=== PATIENT | male | born 1975 | race Caucasian/White ===

== ENCOUNTER 2022-11-01 02:13 | Emergency (ER) | payer OTHER, SELFPAY ==
[2022-11-01 02:17] VITALS: BP 191/104; PULSE 111; RESP 24; O2SAT 97
[2022-11-01 02:18] VITALS: TEMP 36.8; BMI 23.0
--- NOTE | 2022-11-01 02:21 | DI.RAD.S_ITS ---
PROCEDURE: XR CHEST 1V INDICATIONS: L sided chest pain hx of pneumothorax TECHNIQUE: One view of the chest was acquired. COMPARISON: None. FINDINGS: Surgical changes and devices: None. Lungs and pleura: Lungs are clear. No pleural effusions or pneumothorax. Mediastinum: Mediastinal contours appear normal. Heart size is normal. Bones and chest wall: No suspicious bony lesions. Overlying soft tissues appear unremarkable. IMPRESSION: No acute cardiopulmonary process. Dictated by: Pako Romero M.D. on 11/01/2022 at 8:26 Approved by: Pako Romero M.D. on 11/01/2022 at 8:26
--- NOTE | 2022-11-01 02:23 | ED.GENADULT ---
HPI - General Adult General Chief complaint: Chest Pain Stated complaint: chest pain Time Seen by Provider: 11/01/22 02:21 Source: patient Mode of arrival: Ambulatory Limitations: no limitations History of Present Illness HPI narrative: Patient is an otherwise healthy 48-year-old male who is here for evaluation of fairly sudden onset of left-sided chest discomfort. He states that it did wake him from sleep. It is somewhat positional and when he takes a deep breath it ?catches? no nausea vomiting. No fevers. No coughing. He did have the spontaneous pneumothorax many years ago that was on the right side. He states this feels different than that. Has not tried anything for his symptoms prior to arrival. Review of Systems Constitutional Constitutional: Reports system reviewed and no additional complaints, except as documented Cardiovascular Cardiovascular: Reports system reviewed and no additional complaints, except as documented Respiratory Respiratory: Reports system reviewed and no additional complaints, except as documented Gastrointestinal Gastrointestinal: Reports system reviewed and no additional complaints, except as documented Integumentary/Breasts Skin/Breast: Reports system reviewed and no additional complaints, except as documented Patient History Social History Smoking Status: Never smoker Exam Initial Vital Signs Initial Vital Signs: Vital Signs Pulse Rate 111 H 11/01/22 02:17 Respiratory Rate 24 11/01/22 02:17 Blood Pressure 191/104 H 11/01/22 02:17 Pulse Oximetry 97 11/01/22 02:17 Const General: cooperative and comfortable Chest Chest: No crepitus and No tenderness Resp Effort & Inspection: normal respiratory effort Auscultation: clear to auscultation bilaterally Cardio Rate: regular rate Rhythm: regular rhythm GI Inspection: normal to inspection and non-distended Palpation: soft and No tender Skin General: no rashes or lesions noted Extrem General: normal to inspection Scores HEART Score Heart Score history: Slightly Suspicious Heart Score EKG: Non-Specific repolarization disturbance Heart Score Age: 45-64 years old Heart Score risk factors: No known risk factors Heart Score troponin: < or = to normal limit Heart Score Total: 2 Course Orders Ordered: ED Orders 11/01/22 02:21 XR chest 1V Stat 11/01/22 02:22 EKG-12 Lead Stat 11/01/22 02:25 Complete Blood Count AUTO DIFF Stat Comprehensive Metabolic Panel Stat D Dimer Stat Lipase Stat Troponin & CK Cardiac Panel Stat Vital Signs Vital signs: Vital Signs - 8 hr 11/01/22 02:18 11/01/22 02:17 11/01/22 02:17 Temperature 98.3 F Pulse Rate 111 H Respiratory Rate 24 Blood Pressure 191/104 H Pulse Oximetry 97 11/01/22 02:26 11/01/22 02:26 Temperature Pulse Rate 105 H Respiratory Rate 18 Blood Pressure 158/97 H Pulse Oximetry 99 Medical Decision Making Lab Data Lab results reviewed: Yes I reviewed the patient's lab results. 11/01/22 02:25 11/01/22 02:25 Labs: Lab Results 11/01/22 11/01/22 11/01/22 Range/Units 02:25 02:25 02:25 WBC 9.8 (4.5-11.0) X10^3/uL RBC 4.80 (4.5-5.9) X10^6/uL Hgb 15.4 (13.5-17.5) g/dL Hct 43.6 (41-53) % MCV 90.8 (80-100) fL MCH 32.1 (26-34) PG MCHC 35.4 (30-36) % RDW 13.5 (11.6-14.8) % Plt Count 282 (150-400) X10^3/uL Neut % (Auto) 54.3 (50-75) % Lymph % (Auto) 28.4 (25-40) % [place] % (Auto) 10.7 (3-14) % Eos % (Auto) 5.3 H (2-4) % Baso % (Auto) 1.3 (0-2) % Neut # (Auto) 5300 (7727-1708) /uL Lymph # (Auto) 2800 (6381-0883) /uL [place] # (Auto) 1100 H (0-900) /uL Eos # (Auto) 500 H (0-450) /uL Baso # (Auto) 100 (0-100) /uL D-Dimer 324 (<500) ng/ml Sodium 138 (137-145) mmol/L Potassium 4.3 (3.4-5.1) mmol/L Chloride 102 (98-107) mmol/L Carbon Dioxide 28 (22-32) mmol/L BUN 14 (9-20) mg/dL Creatinine 1.21 (0.66-1.25) mg/dL Estimated GFR > 60 (>60) mL/min BUN/Creatinine Ratio 11.6 (6-22) Glucose 103 H (70-100) mg/dL Calcium 9.7 (8.4-10.2) mg/dL Total Bilirubin 1.0 (0.2-1.3) mg/dL AST 42 (17-59) IU/L ALT 34 (<50) IU/L Alkaline Phosphatase 97 (38-126) U/L Total Creatine Kinase 99 (55-170) U/L CK-MB (CK-2) TNP CK-MB (CK-2) Rel Index TNP Troponin I < 0.012 (0.01-0.034) ng/mL Total Protein 8.9 H (6.3-8.2) g/dL Albumin 4.8 (3.5-5.0) g/dL Globulin 4.1 (1.7-4.1) g/dL Albumin/Globulin Ratio 1.2 (1.0-2.8) Lipase 88 (23-300) U/L Imaging Data Chest x-ray: My Impression: No pneumothorax, no pneumonia, no focal consolidations, ECG Data Attestation: I personally reviewed and interpreted this ECG as follows: Interpretation: Sinus tachycardia Ventricular rate 109 Normal axis Normal QRS Nonspecific ST T wave changes MDM Narrative Medical decision making narrative: Patient does have a low risk heart score. His chest x-ray shows no signs of pneumothorax which is what he was concerned about given his history. Nonspecific changes on his EKG. D-dimer is negative. Troponin is negative. Given his presentation today I have low suspicion that this is ACS. No indication for antibiotics. No indication for CT scanning. Will discharge patient home return precautions. Discharge Plan Departure Patient Disposition: Home Clinical Impression: Atypical chest pain Instructions: DI for Atypical Chest Pain Activity Restrictions/Additional Instructions: Recommend that you continue to take all of your medications as directed. Return to the emergency department for new or worsening symptoms. Stand Alone Forms: Patient Portal/API
[2022-11-01 02:26] VITALS: BP 158/97; PULSE 105; RESP 18; O2SAT 99
[2022-11-01 02:30] VITALS: BP 155/96; PULSE 104; RESP 16; O2SAT 98
[2022-11-01 02:37] LABS: Add Manual Diff / Slide Review NO; Basophils Absolute Auto 100 /uL (0-100); Basophils Percent Auto 1.3 % (0-2); Eosinophils Absolute Auto 500 /uL (0-450); Eosinophils Percent Auto 5.3 % (2-4); Hematocrit 43.6 % (41-53); Hemoglobin 15.4 g/dL (13.5-17.5); Lymphocytes Absolute Auto 2800 /uL (1100-4500); Lymphocytes Percent Auto 28.4 % (25-40); Mean Corpuscular HGB Conc 35.4 % (30-36); Mean Corpuscular Hemoglobin 32.1 PG (26-34); Mean Corpuscular Volume 90.8 fL (80-100); Monocytes Absolute Auto 1100 /uL (0-900); Monocytes Percent Auto 10.7 % (3-14); Neutrophils Absolute Auto 5300 /uL (1500-7000); Neutrophils Percent Auto 54.3 % (50-75); Platelet Count 282 X10^3/uL (150-400); Red Cell Distribution Width 13.5 % (11.6-14.8); White Blood Cell Count 9.8 X10^3/uL (4.5-11.0)
[2022-11-01 02:44] LABS: Alanine Aminotransferase 34 IU/L (<50); Albumin 4.8 g/dL (3.5-5.0); Albumin Globulin Ratio 1.2 (1.0-2.8); Alkaline Phosphatase 97 U/L (38-126); Aspartate Aminotransferase 42 IU/L (17-59); BUN Creatinine Ratio 11.6 (6-22); Blood Urea Nitrogen 14 mg/dL (9-20); Calcium 9.7 mg/dL (8.4-10.2); Carbon Dioxide 28 mmol/L (22-32); Chloride 102 mmol/L (98-107); Creatine Kinase 99 U/L (55-170); Estimated Glomerular Filt Rate > 60 mL/min (>60); Globulin 4.1 g/dL (1.7-4.1); Glucose 103 mg/dL (70-100); Lipase 88 U/L (23-300); Sodium 138 mmol/L (137-145); Total Protein 8.9 g/dL (6.3-8.2)
[2022-11-01 02:48] LABS: HEMOLYSIS 105 (0-50)
[2022-11-01 02:49] LABS: D Dimer 324 ng/ml (<500); Potassium 4.3 mmol/L (3.4-5.1)
[2022-11-01 02:55] LABS: Troponin I < 0.012 ng/mL (0.01-0.034)
[2022-11-01 03:00] VITALS: BP 147/85; PULSE 92; RESP 15; O2SAT 97
== END 2022-11-01 03:32 | disposition home or self-care (01) ==
PROVIDERS: Emergency Provider Emergency Medicine
DX: R07.89 Other chest pain (principal)
CPT/HCPCS: 36415; 71045; 80053; 82550; 83690; 84484; 85025; 85379; 93005; 93010; 99284